=== PATIENT | female | born 1935 | race Caucasian/White ===

== ENCOUNTER 2017-10-17 23:24 | Emergency (ER) | payer MEDICARE, BC ==
[2017-10-18 00:28] VITALS: BP 179/89
--- NOTE | 2017-10-18 00:28 | EDM.PDOC ---
ED HPI GENERAL MEDICAL PROBLEM - General Chief Complaint: Allergic Reaction Stated Complaint: LIP/TONGUE Time Seen by Provider: 10/18/17 00:35 Source of Information: Reports: Patient History Limitations: Reports: No Limitations - History of Present Illness INITIAL COMMENTS - FREE TEXT/NARRATIVE: 82 yo female recently had a cataract removed from her L eye. She is instructed to put 2 different eye meds in her L eye 4 times/day. She is struggling with hitting her eyes and at times gets too much medicine in the eye. Some of this med has gotten down her nasolacrimal duct to her nose and throat. The taste is bad and she got nervous tonight that this medicine might be toxic or harmful if swallowed so came in to be seen. Onset Date: 10/17/17 Onset Time: 22:30 Duration: Minutes:, Constant Location: Reports: Face, Neck (throat) Quality: Reports: Burning Severity: Mild Improves with: Reports: Other (time) Worsens with: Reports: Other (Redosing) Context: Reports: Other (Recent cataract extraction. 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: Reports: Other (see below) (none) - Related Data Allergies Allergy/AdvReac Type Severity Reaction Status Date / Time No Known Allergies Allergy Verified 01/16/17 11:05 Home Meds: Home Meds ALPRAZolam [Alprazolam] 0.25 mg PO BID 06/30/15 [History] Aspirin [Adult Low Dose Aspirin EC] 81 mg PO DAILY 06/30/15 [History] Calcium Carbonate/Vitamin D3 [Calcium 600 + Vit D 200] 1 tab PO DAILY 06/30/15 [ History] Cyclobenzaprine [Flexeril] 5 mg PO BEDTIME PRN 06/30/15 [History] Gabapentin [Gabapentin] 300 mg PO TID 06/30/15 [History] Levothyroxine [Levothroid] 137 mcg PO DAILY 06/30/15 [History] Lisinopril/Hydrochlorothiazide [Lisinopril-Hctz 10-12.5 mg Tab] 1 tab PO DAILY 06/30/15 [History] Lovastatin [Lovastatin] 20 mg PO DAILY 06/30/15 [History] Multivitamin [Multi-Vitamin Daily] 1 tab PO DAILY 06/30/15 [History] Naproxen Sodium [Aleve] 220 mg PO BID PRN 06/30/15 [History] Omeprazole [Prilosec] 20 mg PO DAILY 06/30/15 [History] Past Medical History Other HEENT History: Ramon's esophagus Other OB/BYN History: L breast surgery. Other Neuro History: fibromyalgia Restless leg syndrome Social & Family History - Tobacco Use Smoking Status *Q: Never Smoker Second Hand Smoke Exposure: No - Recreational Drug Use Recreational Drug Use: No ED ROS ALLERGIC REACTION - Review of Systems Review Of Systems: See Below Constitutional: Reports: No Symptoms HEENT: Reports: No Symptoms, Other (bad taste in her mouth) Respiratory: Reports: No Symptoms Cardiovascular: Reports: No Symptoms GI/Abdominal: Reports: No Symptoms : Reports: No Symptoms Musculoskeletal: Reports: No Symptoms Skin: Reports: No Symptoms Neurological: Reports: No Symptoms Psychiatric: Reports: Anxiety ED EXAM GENERAL NO PERIP PULSE - Physical Exam Exam: See Below Exam Limited By: No Limitations General Appearance: Alert, WD/WN, No Apparent Distress Eye Exam: Bilateral Eye: Normal Inspection, PERRL Ears: Normal External Exam, Hearing Grossly Normal Nose: Normal Inspection, Normal Mucosa, No Blood Throat/Mouth: Normal Inspection, Normal Lips, Normal Oropharynx, Normal Voice, No Airway Compromise Head: Atraumatic, Normocephalic Neck: Normal Inspection Respiratory/Chest: No Respiratory Distress, Lungs Clear, Normal Breath Sounds, No Accessory Muscle Use Cardiovascular: Regular Rate, Rhythm Neurological: Alert, Oriented, CN II-XII Intact, Normal Cognition Psychiatric: Normal Affect, Normal Mood, Anxious Skin Exam: Warm, Dry, Intact, Normal Color, No Rash Course - Vital Signs Last Recorded V/S: Last Vital Signs Temp 35.8 C 10/18/17 00:39 Pulse 62 10/18/17 00:39 Resp 18 10/18/17 00:39 BP 179/89 H 10/18/17 00:39 Pulse Ox 97 10/18/17 00:39 Departure - Departure Time of Disposition: 00:52 Disposition: Home, Self-Care 01 Condition: Good Clinical Impression: Anxiety - Discharge Information Referrals: Carl Jensen MD [Primary Care Provider] - Forms: ED Department Discharge
== END 2017-10-18 01:15 | disposition home or self-care (01) ==
LOC: JP.ED 23:24
DX: F41.9 Anxiety disorder, unspecified (principal); Z79.82 Long term (current) use of aspirin; Z79.899 Other long term (current) drug therapy
CPT/HCPCS: 99282; 99283

== ENCOUNTER 2019-03-08 13:40 | Emergency (ER) | payer MEDICARE, BC ==
[2019-03-08 14:06] VITALS: BP 151/75; PULSE 66
--- NOTE | 2019-03-08 14:10 | EDM.PDOC ---
ED HPI GENERAL MEDICAL PROBLEM - General Chief Complaint: Skin Complaint Stated Complaint: 3 LARGE BELLO ON ARM Time Seen by Provider: 03/08/19 13:55 Source of Information: Reports: Patient, Old Records History Limitations: Reports: No Limitations - History of Present Illness INITIAL COMMENTS - FREE TEXT/NARRATIVE: 83 yo female has 3 welts that are itchy on the medial side of her R arm that began about 3 days ago. It started with one lesion and then became 2 and there is one on just starting on the R elbow. No self tx. She has not been to the clinic and has no other sx's. No new meds. Not aware of any bug bites. Onset: Gradual Onset Date: 03/05/19 Duration: Day(s):, Getting Worse Location: Reports: Upper Extremity, Right Quality: Reports: Other (itchy) Severity: Mild Improves with: Reports: None Worsens with: Reports: Other (? 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: Other (see below) (None) - Related Data Allergies Allergy/AdvReac Type Severity Reaction Status Date / Time No Known Allergies Allergy Verified 03/08/19 13:57 Home Meds: Home Meds ALPRAZolam [Alprazolam] 0.25 mg PO BID 06/30/15 [History] Aspirin [Adult Low Dose Aspirin EC] 81 mg PO DAILY 06/30/15 [History] Calcium Carbonate/Vitamin D3 [Calcium 600 + Vit D 200] 1 tab PO DAILY 06/30/15 [ History] Cyclobenzaprine [Flexeril] 5 mg PO BEDTIME PRN 06/30/15 [History] Gabapentin 300 mg PO TID 06/30/15 [History] Levothyroxine [Levothroid] 137 mcg PO DAILY 06/30/15 [History] Lisinopril/Hydrochlorothiazide [Lisinopril-Hctz 10-12.5 mg Tab] 1 tab PO DAILY 06/30/15 [History] Lovastatin 20 mg PO DAILY 06/30/15 [History] Multivitamin [Multi-Vitamin Daily] 1 tab PO DAILY 06/30/15 [History] Naproxen Sodium [Aleve] 220 mg PO BID PRN 06/30/15 [History] Omeprazole [Prilosec] 20 mg PO DAILY 06/30/15 [History] Past Medical History HEENT History: Reports: Impaired Vision Other HEENT History: Ramon's esophagus Cardiovascular History: Reports: High Cholesterol, Other (See Below) Other Cardiovascular History: Venous insufficiency both lower extremities Gastrointestinal History: Reports: Other (See Below) Other Gastrointestinal History: Ramon's Esophagua DOCUMENT PHOTOGRAPHER History: Reports: Other (See Below) Other DOCUMENT PHOTOGRAPHER History: L breast surgery. Musculoskeletal History: Reports: Fibromyalgia, Osteoarthritis, Other (See Below ) Other Musculoskeletal History: myalgia Neurological History: Reports: Other (See Below) Other Neuro History: fibromyalgia Restless leg syndrome Endocrine/Metabolic History: Reports: Hypothyroidism - Infectious Disease History Infectious Disease History: Reports: Chicken Pox - Past Surgical History Head Surgeries/Procedures: Reports: None HEENT Surgical History: Reports: Cataract Surgery Cardiovascular Surgical History: Reports: None Endocrine Surgical History: Reports: None Neurological Surgical History: Reports: None Musculoskeletal Surgical History: Reports: Hip Replacement Dermatological Surgical History: Reports: None Social & Family History - Tobacco Use Smoking Status *Q: Never Smoker Second Hand Smoke Exposure: No - Caffeine Use Caffeine Use: Reports: Coffee - Recreational Drug Use Recreational Drug Use: No ED ROS GENERAL - Review of Systems Review Of Systems: See Below Constitutional: Reports: No Symptoms HEENT: Reports: No Symptoms Respiratory: Reports: No Symptoms Cardiovascular: Reports: No Symptoms GI/Abdominal: Reports: No Symptoms : Reports: No Symptoms Musculoskeletal: Reports: No Symptoms Skin: Reports: Pruritis, Rash, Erythema Neurological: Reports: No Symptoms Psychiatric: Reports: Anxiety ED EXAM, SKIN/RASH Exam: See Below Exam Limited By: No Limitations General Appearance: Alert, WD/WN, No Apparent Distress Eye Exam: Bilateral Eye: Normal Inspection Ears: Normal External Exam, Normal Canal, Hearing Grossly Normal Nose: Normal Inspection, No Blood Throat/Mouth: Normal Inspection, Normal Lips, Normal Oropharynx, Normal Voice, No Airway Compromise Head: Atraumatic, Normocephalic Neck: Normal Inspection Respiratory/Chest: No Respiratory Distress, Lungs Clear, Normal Breath Sounds, No Accessory Muscle Use Cardiovascular: Regular Rate, Rhythm, No Edema Extremities: Normal Inspection Neurological: Alert, Oriented, CN II-XII Intact, Normal Cognition, No Motor/ Sensory Deficits Psychiatric: Normal Affect, Normal Mood Skin: Warm, Dry, Intact, No Rash, Erythema (pale pink in color, hive-like), Rash Location, Skin: Upper Extremity, Right Characteristics: Maculopapular, Erythematous Associated features: Swelling, Induration. No: Warmth, Tenderness, Lymphangitis Course - Vital Signs Last Recorded V/S: Last Vital Signs Temp 36.3 C 03/08/19 14:03 Pulse 66 03/08/19 14:03 Resp 16 03/08/19 14:03 BP 151/75 H 03/08/19 14:03 Pulse Ox 97 03/08/19 14:03 Departure - Departure Time of Disposition: 14:15 Disposition: Home, Self-Care 01 Condition: Good Clinical Impression: Giant hives Qualifiers: Encounter type: initial encounter Qualified Code(s): T78.3XXA - Angioneurotic edema, initial encounter - Discharge Information *PRESCRIPTION DRUG MONITORING PROGRAM REVIEWED*: No *COPY OF PRESCRIPTION DRUG MONITORING REPORT IN PATIENT MARIELA: No Instructions: Angioedema, [id number] Referrals: Carl Jensen MD [Primary Care Provider] - Additional Instructions: Take cetirizine 10 mg every 24 hrs. Add diphenhydramine 25-50 mg every 4-6 hrs as needed for continued symptoms. Recheck with your provider if not improving. Avoid scratching if possible. Return for trouble breathing.
== END 2019-03-08 14:19 | disposition home or self-care (01) ==
LOC: JP.ED 13:40
DX: T78.3XXA Angioneurotic edema, initial encounter (principal); E78.00 Pure hypercholesterolemia, unspecified; E03.9 Hypothyroidism, unspecified; Z79.82 Long term (current) use of aspirin; Z79.899 Other long term (current) drug therapy
CPT/HCPCS: 99282; 99283

== ENCOUNTER 2021-09-12 17:37 | Emergency (ER) | payer MEDICARE, BC ==
[2021-09-12] MEDS: Ketorolac 30 MG/ML SDV IM ONE (18:54)
[2021-09-12] MEDS ORDERED: Sodium Chloride 0.9% 1,000 ML IV SCH (19:30)
[2021-09-12] MEDS: Sodium Chloride 0.9% 10 ML Syringe FLUSH PRN (19:59)
[2021-09-12] MEDS: Iopamidol 755 Mg/ML 100 ML Bottle IV SCH (20:04)
[2021-09-12] MEDS: Sodium Chloride 0.9% 75 ML IV SCH (20:04)
[2021-09-12 20:43] VITALS: BP 139/51; PULSE 53
== END 2021-09-12 21:41 | disposition home or self-care (01) ==
LOC: JP.ED 17:37
DX: R07.89 Other chest pain (principal); E78.00 Pure hypercholesterolemia, unspecified; E03.9 Hypothyroidism, unspecified; M19.90 Unspecified osteoarthritis, unspecified site; Z91.048 Other nonmedicinal substance allergy status; Z79.82 Long term (current) use of aspirin; Z79.899 Other long term (current) drug therapy
CPT/HCPCS: 36415; 71046; 71275; 80053; 83605; 83690; 84484; 85025; 85379; 86140; 93005; 96372; 99285; J1885; Q9967

== ENCOUNTER 2021-11-28 08:57 | Inpatient (IN) | payer MEDICARE, BC ==
[~2021-11-28 08:57] MED LIST: Bupivacaine 0.5% 50 ML MDV ONE; Dexamethasone 4 MG/ML SDV ONE; Glycopyrrolate 0.2 MG/ML 5 ML MDV ONE; Lidocaine 1% with EPINEPHrine 1:100,000 50 ML MDV ONE; Neostigmine Methylsulfate 1 MG/ML 5 ML Syringe ONE; Ondansetron 4 MG/2 ML SDV ONE; Propofol 200 MG/20 ML SDV ONE; Rocuronium 50 MG/5 ML Vial ONE; fentaNYL 250 MCG/5 ML SDV ONE
[2021-11-28] MEDS ORDERED: Acetaminophen 500 MG Tab PO ONE (09:15)
[2021-11-28] MEDS ORDERED: Gabapentin 300 MG Cap PO ONE (09:15)
[2021-11-28] MEDS ORDERED: Dextrose 5%-Lactated Ringers 1,000 ML IV SCH ×2 (09:30→13:30)
[2021-11-28] MEDS ORDERED: cefOXitin 2 GM in Sodium Chloride 0.9% 50 ML IV ONE (10:15)
[2021-11-28] MEDS ORDERED: Ketamine 14 MG in Sodium Chloride 0.9% 19.86 ML IV SCH (10:30)
[2021-11-28] MEDS ORDERED: Ketamine 500 MG/5 ML MDV IV SCH (10:30)
[2021-11-28] MEDS ORDERED: Labetalol 20 MG/4 ML Syringe ONE (11:19)
[2021-11-28] MEDS ORDERED: Naloxone 0.4 MG/ML SDV ONE (11:45)
[2021-11-28] MEDS ORDERED: Sugammadex Sodium 200 MG/2 ML VIAL ONE (11:53)
[2021-11-28] MEDS ORDERED: HYDROmorphone 0.5 MG/0.5 ML Syringe IVPUSH PRN (13:18)
[2021-11-28] MEDS ORDERED: Ondansetron 4 MG/2 ML SDV IVPUSH PRN (13:20)
[2021-11-28] MEDS ORDERED: Cyclobenzaprine 10 MG Tab PO PRN (13:43)
[2021-11-28] MEDS ORDERED: Pantoprazole 40 MG Vial IV SCH (14:00)
[2021-11-28] MEDS: Gabapentin 300 MG Cap PO SCH ×2 (15:15→20:41)
[2021-11-28] MEDS: Latanoprost 0.005% Ophth Soln 2.5 ML Bottle EYEBOTH SCH (20:42)
[2021-11-28] MEDS: Naproxen 250 MG Tab PO SCH (20:42)
[2021-11-28] MEDS ORDERED: Tamsulosin 0.4 MG Cap.ER PO ONE (22:01)
[2021-11-28] MEDS: traMADol 50 MG Tab PO PRN (22:30)
[2021-11-29] MEDS: traMADol 50 MG Tab PO PRN (04:22)
[2021-11-29] MEDS: Levothyroxine 50 MCG Tab PO SCH (07:58)
[2021-11-29] MEDS: Gabapentin 300 MG Cap PO SCH ×3 (07:59→20:10)
[2021-11-29] MEDS: Lisinopril 10 MG Tab PO SCH (07:59)
[2021-11-29] MEDS: Naproxen 250 MG Tab PO SCH ×2 (07:59→20:11)
[2021-11-29] MEDS: Hydrochlorothiazide 12.5 MG Cap PO SCH (07:59)
[2021-11-29] MEDS: Pantoprazole 40 MG Tab.CR PO SCH (10:34)
[2021-11-29] MEDS ORDERED: Acetaminophen 325 MG Tab PO PRN (12:00)
[2021-11-29] MEDS: Bisacodyl 5 MG Tab PO SCH ×2 (12:39→20:11)
[2021-11-29] MEDS: Docusate Sodium 100 MG Cap PO SCH ×2 (12:39→20:10)
[2021-11-29] MEDS: Acetaminophen 325 MG Tab PO SCH ×3 (13:10→23:10)
[2021-11-29] MEDS: Tamsulosin 0.4 MG Cap.ER PO SCH (20:11)
[2021-11-29] MEDS: Latanoprost 0.005% Ophth Soln 2.5 ML Bottle EYEBOTH SCH (20:11)
[2021-11-30] MEDS: Acetaminophen 325 MG Tab PO SCH ×3 (05:37→17:40)
[2021-11-30] MEDS ORDERED: Magnesium Hydroxide 400 MG/5 ML Susp 30 ML Cup PO PRN (07:10)
[2021-11-30] MEDS: Pantoprazole 40 MG Tab.CR PO SCH (08:39)
[2021-11-30] MEDS: Docusate Sodium 100 MG Cap PO SCH ×2 (08:39→21:29)
[2021-11-30] MEDS: Levothyroxine 50 MCG Tab PO SCH (08:39)
[2021-11-30] MEDS: Bisacodyl 5 MG Tab PO SCH ×2 (08:39→21:29)
[2021-11-30] MEDS: Naproxen 250 MG Tab PO SCH ×2 (08:39→21:33)
[2021-11-30] MEDS: Gabapentin 300 MG Cap PO SCH ×3 (08:40→21:29)
[2021-11-30] MEDS: Hydrochlorothiazide 12.5 MG Cap PO SCH (08:40)
[2021-11-30] MEDS: Lisinopril 10 MG Tab PO SCH (08:40)
[2021-11-30] MEDS: Latanoprost 0.005% Ophth Soln 2.5 ML Bottle EYEBOTH SCH (21:30)
[2021-11-30] MEDS: Tamsulosin 0.4 MG Cap.ER PO SCH (21:33)
[2021-12-01] MEDS: Acetaminophen 325 MG Tab PO SCH ×2 (00:05→05:18)
[2021-12-01] MEDS: Levothyroxine 50 MCG Tab PO SCH (07:41)
[2021-12-01] MEDS: Pantoprazole 40 MG Tab.CR PO SCH (07:41)
[2021-12-01 07:46] VITALS: BP 120/68; PULSE 60
[2021-12-01] MEDS: Docusate Sodium 100 MG Cap PO SCH (08:56)
[2021-12-01] MEDS: Bisacodyl 5 MG Tab PO SCH (08:56)
[2021-12-01] MEDS: Gabapentin 300 MG Cap PO SCH (09:20)
[2021-12-01] MEDS: Lisinopril 10 MG Tab PO SCH (09:21)
[2021-12-01] MEDS: Hydrochlorothiazide 12.5 MG Cap PO SCH (09:21)
[2021-12-01] MEDS: Naproxen 250 MG Tab PO SCH (09:21)
== END 2021-12-01 10:21 | disposition home or self-care (01) | DRG 418 ==
LOC: JP.SDS 08:57 → JP.MS 11:40 → JP.SDS 11-29 11:00
PROVIDERS: ADMIT Surgery; ATTEND Surgery
PROC: 0FT44ZZ Resection of Gallbladder, Percutaneous Endoscopic Approach (ICD-10-PCS; principal; 2021-11-28)
PROC: 0DQ94ZZ Repair Duodenum, Percutaneous Endoscopic Approach (ICD-10-PCS; 2021-11-28)
PROC: 0WQF4ZZ Repair Abdominal Wall, Percutaneous Endoscopic Approach (ICD-10-PCS; 2021-11-28)
DX: K80.20 Calculus of gallbladder without cholecystitis without obstruction (principal); K91.72 Accidental puncture and laceration of a digestive system organ or structure during other procedure; K82.8 Other specified diseases of gallbladder; K42.9 Umbilical hernia without obstruction or gangrene; R33.9 Retention of urine, unspecified; E78.00 Pure hypercholesterolemia, unspecified; E20.9 Hypoparathyroidism, unspecified; F41.9 Anxiety disorder, unspecified; Z85.3 Personal history of malignant neoplasm of breast; I10 Essential (primary) hypertension; K22.70 Barrett's esophagus without dysplasia; K59.00 Constipation, unspecified; M79.7 Fibromyalgia; H40.9 Unspecified glaucoma; E03.9 Hypothyroidism, unspecified; M19.90 Unspecified osteoarthritis, unspecified site; M16.11 Unilateral primary osteoarthritis, right hip; G25.81 Restless legs syndrome; Z96.641 Presence of right artificial hip joint; Z79.82 Long term (current) use of aspirin; Z79.899 Other long term (current) drug therapy; Z88.8 Allergy status to other drugs, medicaments and biological substances; Y83.8 Other surgical procedures as the cause of abnormal reaction of the patient, or of later complication, without mention of misadventure at the time of the procedure
CPT/HCPCS: 36415; 51701; 51702; 51798; 82247; 84075; 85025; 88304; A9270-GY; J0171; J0694; J1100; J2310; J2405; J2704; J2710; J2795; J3010; J3490; J7121; U0002

== ENCOUNTER 2022-03-19 23:33 | Emergency (ER) | payer MEDICARE, BC ==
[2022-03-20 00:36] VITALS: BP 168/78; PULSE 63
== END 2022-03-20 02:25 | disposition home or self-care (01) ==
LOC: JP.ED 23:33
DX: U07.1 COVID-19 (principal); Z91.048 Other nonmedicinal substance allergy status; Z88.8 Allergy status to other drugs, medicaments and biological substances; Z79.899 Other long term (current) drug therapy; Z79.82 Long term (current) use of aspirin; Z90.49 Acquired absence of other specified parts of digestive tract
CPT/HCPCS: 99283; U0002

== ENCOUNTER 2022-08-12 20:56 | Emergency (ER) | payer MEDICARE, BC ==
[2022-08-12] MEDS ORDERED: fentaNYL 50 MCG/ML SDV IVPUSH ONE ×2 (21:32→23:02)
[2022-08-12 22:37] VITALS: BP 164/65; PULSE 60
== END 2022-08-12 22:20 | disposition other institution (70) ==
LOC: JP.ED 20:56
DX: S72.141A Displaced intertrochanteric fracture of right femur, initial encounter for closed fracture (principal); Z91.048 Other nonmedicinal substance allergy status; Z79.899 Other long term (current) drug therapy; Z79.82 Long term (current) use of aspirin; Z90.49 Acquired absence of other specified parts of digestive tract; Z20.822 Contact with and (suspected) exposure to COVID-19; W19.XXXA Unspecified fall, initial encounter
CPT/HCPCS: 36415; 73502; 80048; 85025; 96374; 96376; 99285; J3010; U0002; 99284

== ENCOUNTER 2022-08-27 10:57 | Emergency (ER) | payer MEDICARE, BC ==
[2022-08-27] MEDS ORDERED: Sodium Chloride 0.9% 10 ML Syringe FLUSH PRN (11:05)
[2022-08-27] MEDS ORDERED: HYDROmorphone 0.5 MG/0.5 ML Syringe IVPUSH ONE (11:06)
[2022-08-27 12:09] VITALS: PULSE 67
[2022-08-27] MEDS ORDERED: Propofol 200 MG/20 ML SDV ONE (13:59)
[2022-08-27 15:12] VITALS: BP 136/59
== END 2022-08-27 15:26 ==
LOC: JP.ED 10:57
DX: S73.004A Unspecified dislocation of right hip, initial encounter (principal); E78.00 Pure hypercholesterolemia, unspecified; Z91.048 Other nonmedicinal substance allergy status; Z79.899 Other long term (current) drug therapy; Z90.49 Acquired absence of other specified parts of digestive tract
CPT/HCPCS: 36415; 73501; 80048; 85025; 96374; 99283; 99284; J1170; J2704; J3490

== ENCOUNTER 2022-08-28 16:44 | Inpatient (IN) | payer MEDICARE, BC ==
[2022-08-28] MEDS ORDERED: Sodium Chloride 0.9% 1,000 ML IV SCH (17:45)
[2022-08-28] MEDS ORDERED: HYDROmorphone 0.5 MG/0.5 ML Syringe IVPUSH ONE (17:59)
[2022-08-28 18:07] LABS: ESTIMATED GFR 84 mL/min (>60)
[2022-08-28] MEDS ORDERED: cefTRIAXone 2 GM in Sodium Chloride 0.9% 50 ML IV ONE (18:15)
[2022-08-28 19:18] LABS: CORONAVIRUS COVID-19 NAA NEGATIVE (NEGATIVE)
[2022-08-28] MEDS ORDERED: Bisacodyl 5 MG Tab PO PRN (19:49)
[2022-08-28] MEDS ORDERED: Acetaminophen 325 MG Tab PO PRN (19:49)
[2022-08-28] MEDS ORDERED: LORazepam 2 MG/ML SDV IV PRN (19:49)
[2022-08-28] MEDS ORDERED: Ondansetron 4 MG Tab.DIS PO PRN (19:49)
[2022-08-28] MEDS ORDERED: Docusate Sodium 100 MG Cap PO PRN (19:49)
[2022-08-28] MEDS ORDERED: Morphine 2 MG/ML SYRINGE IVPUSH PRN (19:49)
[2022-08-28] MEDS ORDERED: Ondansetron 4 MG/2 ML SDV IV PRN (19:49)
[2022-08-28] MEDS: Calcium Carbonate/Vitamin D3 1500 MG-400 Units Tab PO SCH (20:53)
[2022-08-28] MEDS: Sodium Chloride 0.9% 1,000 ML IV SCH (20:53)
[2022-08-28] MEDS ORDERED: Latanoprost 0.005% Ophth Soln 2.5 ML Bottle EYEBOTH SCH (21:00)
[2022-08-28] MEDS ORDERED: Pantoprazole 40 MG Vial IVPUSH SCH (21:00)
[2022-08-28] MEDS: Sennosides 8.6 MG Tab PO SCH (22:17)
[2022-08-28] MEDS: Acetaminophen 325 MG Tab PO SCH (22:17)
[2022-08-28] MEDS: Phenazopyridine 95 MG Tab PO SCH (22:17)
[2022-08-28] MEDS ORDERED: Gabapentin 300 MG Cap PO ONE (23:00)
[2022-08-29] MEDS: oxyCODONE 5 MG Tab PO PRN ×4 (00:13→21:22)
[2022-08-29] MEDS: Acetaminophen 325 MG Tab PO SCH ×5 (05:10→21:22)
[2022-08-29] MEDS: Sodium Chloride 0.9% 1,000 ML IV SCH (05:38)
[2022-08-29] MEDS: Fluticasone NASAL Spray 16 GM Bottle NAS SCH (08:11)
[2022-08-29] MEDS: Levothyroxine 100 MCG Tab PO SCH (08:12)
[2022-08-29] MEDS: Ascorbic Acid 500 MG Tab PO SCH (08:12)
[2022-08-29] MEDS: Calcium Carbonate/Vitamin D3 1500 MG-400 Units Tab PO SCH ×2 (08:12→20:10)
[2022-08-29] MEDS: Phenazopyridine 95 MG Tab PO SCH ×3 (08:12→17:27)
[2022-08-29] MEDS: Hydrochlorothiazide 12.5 MG Cap PO SCH (08:13)
[2022-08-29] MEDS: Sennosides 8.6 MG Tab PO SCH ×2 (08:13→20:09)
[2022-08-29] MEDS: Lisinopril 10 MG Tab PO SCH (08:13)
[2022-08-29] MEDS: Lidocaine 5% 700 MG Patch TOP SCH (08:14)
[2022-08-29] MEDS ORDERED: Non-Formulary Medication 1 Each (Fluticasone Propionate [Flovent] 50 MCG Blst.W.Dev) IN SCH (09:00)
[2022-08-29] MEDS ORDERED: Gabapentin 300 MG Cap PO SCH (09:00)
[2022-08-29] MEDS ORDERED: Fluticasone NASAL Spray 16 GM Bottle NAS SCH (09:00)
[2022-08-29] MEDS: Gabapentin 300 MG Cap PO SCH ×2 (11:50→20:10)
[2022-08-29] MEDS: cefTRIAXone 2 GM in Sodium Chloride 0.9% 50 ML IV SCH (20:09)
[2022-08-29] MEDS: Pantoprazole 40 MG Tab.CR PO SCH (20:10)
[2022-08-29] MEDS: Latanoprost 0.005% Ophth Soln 2.5 ML Bottle EYEBOTH SCH (20:11)
[2022-08-30] MEDS: oxyCODONE 5 MG Tab PO PRN ×5 (01:37→23:39)
[2022-08-30] MEDS: Acetaminophen 325 MG Tab PO SCH ×4 (05:15→21:14)
[2022-08-30] MEDS: Lidocaine 5% 700 MG Patch TOP SCH (10:02)
[2022-08-30] MEDS: Lisinopril 10 MG Tab PO SCH (10:04)
[2022-08-30] MEDS: Fluticasone NASAL Spray 16 GM Bottle NAS SCH (10:04)
[2022-08-30] MEDS: Hydrochlorothiazide 12.5 MG Cap PO SCH (10:04)
[2022-08-30] MEDS: Calcium Carbonate/Vitamin D3 1500 MG-400 Units Tab PO SCH ×2 (10:04→20:00)
[2022-08-30] MEDS: Levothyroxine 100 MCG Tab PO SCH (10:04)
[2022-08-30] MEDS: Gabapentin 300 MG Cap PO SCH ×2 (10:04→20:00)
[2022-08-30] MEDS: Ascorbic Acid 500 MG Tab PO SCH (10:05)
[2022-08-30] MEDS: Phenazopyridine 95 MG Tab PO SCH ×3 (10:05→17:18)
[2022-08-30] MEDS: Sennosides 8.6 MG Tab PO SCH ×2 (10:06→20:00)
[2022-08-30] MEDS: cefTRIAXone 2 GM in Sodium Chloride 0.9% 50 ML IV SCH (19:39)
[2022-08-30] MEDS: Pantoprazole 40 MG Tab.CR PO SCH (20:00)
[2022-08-30] MEDS: Latanoprost 0.005% Ophth Soln 2.5 ML Bottle EYEBOTH SCH (20:00)
[2022-08-31] MEDS: Acetaminophen 325 MG Tab PO SCH (06:29)
[2022-08-31] MEDS: Levothyroxine 100 MCG Tab PO SCH (07:50)
[2022-08-31] MEDS: oxyCODONE 5 MG Tab PO PRN (07:50)
[2022-08-31] MEDS: Calcium Carbonate/Vitamin D3 1500 MG-400 Units Tab PO SCH (07:51)
[2022-08-31] MEDS: Fluticasone NASAL Spray 16 GM Bottle NAS SCH (07:51)
[2022-08-31] MEDS: Lidocaine 5% 700 MG Patch TOP SCH (07:52)
[2022-08-31] MEDS: Hydrochlorothiazide 12.5 MG Cap PO SCH (07:52)
[2022-08-31] MEDS: Gabapentin 300 MG Cap PO SCH (07:52)
[2022-08-31] MEDS: Ascorbic Acid 500 MG Tab PO SCH (07:53)
[2022-08-31] MEDS: Phenazopyridine 95 MG Tab PO SCH (07:54)
[2022-08-31] MEDS: Sennosides 8.6 MG Tab PO SCH (07:54)
[2022-08-31] MEDS: Lisinopril 10 MG Tab PO SCH (07:54)
[2022-08-31 08:39] VITALS: BP 122/54; PULSE 67
== END 2022-08-31 09:45 | DRG 700 ==
LOC: JP.ED 16:44 → JP.MS 19:20
PROVIDERS: ADMIT Hospitalist; ATTEND Hospitalist
DX: T83.511A Infection and inflammatory reaction due to indwelling urethral catheter, initial encounter (principal); N39.0 Urinary tract infection, site not specified; R33.9 Retention of urine, unspecified; E78.5 Hyperlipidemia, unspecified; M25.551 Pain in right hip; K59.09 Other constipation; Z20.822 Contact with and (suspected) exposure to COVID-19; F41.9 Anxiety disorder, unspecified; F32.A Depression, unspecified; I10 Essential (primary) hypertension; E11.9 Type 2 diabetes mellitus without complications; E03.9 Hypothyroidism, unspecified; E78.00 Pure hypercholesterolemia, unspecified; Z96.641 Presence of right artificial hip joint; Z96.698 Presence of other orthopedic joint implants; Z98.42 Cataract extraction status, left eye; Z98.41 Cataract extraction status, right eye; M79.7 Fibromyalgia; Z79.1 Long term (current) use of non-steroidal anti-inflammatories (NSAID); Z79.890 Hormone replacement therapy; Z87.19 Personal history of other diseases of the digestive system; Z98.890 Other specified postprocedural states; Z88.8 Allergy status to other drugs, medicaments and biological substances; Z90.89 Acquired absence of other organs; Z90.49 Acquired absence of other specified parts of digestive tract; Z90.10 Acquired absence of unspecified breast and nipple; Z85.3 Personal history of malignant neoplasm of breast; Y84.6 Urinary catheterization as the cause of abnormal reaction of the patient, or of later complication, without mention of misadventure at the time of the procedure; Y92.89 Other specified places as the place of occurrence of the external cause; G25.81 Restless legs syndrome; K21.9 Gastro-esophageal reflux disease without esophagitis; Z79.899 Other long term (current) drug therapy
CPT/HCPCS: 0241U; 36415; 71045; 71045-26; 73502-26-RT; 73502-RT; 73552-26-LT; 73552-RT; 80048; 80053; 81001; 83605; 85025; 87040; 87086; 87088; 87186; 97110-GP; 97140-GP; 97162-GP; 97165-GO; 97530-GP; A9270-GY; C9113; J0696; J1170; J7030; U0002

== ENCOUNTER 2022-09-10 12:33 | Emergency (ER) | payer MEDICARE, BC ==
[2022-09-10] MEDS ORDERED: Acetaminophen 500 MG Tab PO ONE (14:31)
[2022-09-10 14:56] VITALS: BP 122/58; PULSE 66
== END 2022-09-10 16:38 ==
LOC: JP.ED 12:33
DX: M97.01XA Periprosthetic fracture around internal prosthetic right hip joint, initial encounter (principal); M25.561 Pain in right knee; M25.571 Pain in right ankle and joints of right foot; E78.00 Pure hypercholesterolemia, unspecified; I10 Essential (primary) hypertension; K21.9 Gastro-esophageal reflux disease without esophagitis; E78.5 Hyperlipidemia, unspecified; E03.9 Hypothyroidism, unspecified; Z91.048 Other nonmedicinal substance allergy status; Z79.899 Other long term (current) drug therapy; Z96.641 Presence of right artificial hip joint
CPT/HCPCS: 73502; 73560; 73600; 99284; A9270

== ENCOUNTER 2022-09-21 16:53 | Emergency (ER) | payer MEDICARE, BC ==
[2022-09-21 16:58] VITALS: BP 120/60; PULSE 71
[2022-09-21] MEDS ORDERED: fentaNYL 50 MCG/ML SDV IVPUSH ONE (17:03)
[2022-09-21] MEDS ORDERED: Propofol 200 MG/20 ML SDV ONE (18:21)
[2022-09-21] MEDS ORDERED: Lactated Ringers 1,000 ML IV SCH (19:00)
[2022-09-21] MEDS ORDERED: oxyCODONE 5 MG Tab PO ONE (20:52)
== END 2022-09-21 20:40 ==
LOC: JP.ED 16:53
DX: T84.020A Dislocation of internal right hip prosthesis, initial encounter (principal); K21.9 Gastro-esophageal reflux disease without esophagitis; E03.9 Hypothyroidism, unspecified; E78.00 Pure hypercholesterolemia, unspecified; I10 Essential (primary) hypertension; Z91.048 Other nonmedicinal substance allergy status; Z91.09 Other allergy status, other than to drugs and biological substances; Z79.899 Other long term (current) drug therapy
CPT/HCPCS: 27265; 73501; 96361; 96374; 99285; A9270; J2704; J3010; J7120